=== PATIENT | female | born 1965 | race Caucasian/White ===

== ENCOUNTER → 2017-07-22 13:30 | Outpatient (CLI) | payer BC | END | disposition home or self-care (01) | LOC: D.MAMMO 11:00 | DX: Z12.31 Encounter for screening mammogram for malignant neoplasm of breast (principal) ==

== ENCOUNTER → 2019-09-29 10:41 | Outpatient (CLI) | payer BC | END | disposition home or self-care (01) | LOC: D.MRI 10:41 | PROVIDERS: ATTEND Clinical Nurse Specialist Family Health | DX: M25.512 Pain in left shoulder (principal) ==

== ENCOUNTER → 2020-01-02 11:34 | Outpatient (CLI) | payer OTHER | END | disposition home or self-care (01) | LOC: D.RAD 11:30 | PROVIDERS: ATTEND Pediatrics | DX: Z02.71 Encounter for disability determination (principal) ==

== ENCOUNTER 2020-01-09 05:40 | Day surgery (SDC) | payer MEDICAID ==
--- NOTE | 2020-01-06 08:37 | NUR ---
bp ra-124/85 pox-98% hr- 64 rr- 16 t- 97.8
[2020-01-06 08:50] LABS: HEMATOCRIT 45.1 % (36.0-48.0); HEMOGLOBIN 15.4 g/dL (12-16); MCH 32.4 pg (26.0-34.0); MCHC 34.1 g/dL (31.0-37.0); MCV 94.9 fL (80.0-100.0); MEAN PLATELET VOLUME 10.2 fL (7.4-10.4); RBC 4.75 10x6/uL (4.00-5.40); RDW 12.8 % (11.5-14.5); WBC 6.6 10x3/uL (4.8-10.8)
[~2020-01-09] VITALS: Ht 160 cm; Wt 62.6 kg
[~2020-01-09 05:40] MED LIST: CYCLOBENZAPRINE5 MG PO; HYDROCODON-ACE1 EA10 PO; MOBIC7.5 MG PO; NEURONTIN 300300 MG PO; ZANAFLEX4 MG PO
[2020-01-09 06:08] VITALS: BP 115/59; Ht 160 cm; Wt 62.6 kg
[2020-01-09] MEDS ORDERED: HYDROCODON-ACE1 EA10 PO (08:15)
--- NOTE | 2020-01-10 09:15 | OP ---
PATIENT NAME: WM DE LOS SANTOS MEDICAL RECORD: [id number] :67 LOCATION:[facility] ADMISSION DATE: SURGEON: AFSHAN MONAHAN MD DATE OF OPERATION: 01/09/2020 PREOPERATIVE DIAGNOSIS: Impingement syndrome of the left shoulder with rotator cuff tear. POSTOPERATIVE DIAGNOSIS: Impingement syndrome of the left shoulder with rotator cuff tear plus severe biceps tendinitis. PROCEDURES: 1. Arthroscopic rotator cuff repair, left shoulder. 2. Arthroscopic biceps tenotomy of the left shoulder. 3. Arthroscopic distal clavicle excision done through separate incision. 4. Arthroscopic subacromial decompression, acromioplasty, and bursectomy. SURGEON: Afshan Monahan MD ANESTHESIA: General. INTRAOPERATIVE COMPLICATIONS: None. SUMMARY OF PATHOLOGIC FINDINGS: Consistent with the preoperative diagnosis, the patient did indeed have impingement syndrome with excoriation of the coracoacromial ligament as well as the undersurface of the acromion full thickness rotator cuff tearing of the distal supraspinatus tendon, biceps tendinitis, and acromioclavicular arthritis. OPERATIVE SUMMARY IN DETAIL: After obtaining the appropriate preoperative orthopedic surgery consent as well as anesthetic consultation, evaluation and clearance, the patient was brought to the operating room and placed on the operating table in a supine position. After adequate general laryngeal mask airway was administered, the patient was placed in right lateral decubitus position. All pressure points were well padded to include down leg peroneal pad as well as the axillary roll. The patient was held firmly to the operating table using the vacuum pack suction system. Left upper extremity and shoulder were then prepped and draped in routine sterile fashion. The arm was held in the [employer] traction boom at 30 degrees of forward flexion, 30 degrees of abduction, 10 pounds of traction laterally. Arthroscopy was established in the glenohumeral joint from the posterior portal. Anterior portal was established in the anterior safe interval. Diagnostic arthroscopy showed the patient to have the above findings full thickness rotator cuff tear was noted. The Brain 1 [place] tissue ablation system was utilized to denude to release the biceps tendon at the bicipital labral junction. The undersurface of the acromion was then denuded of all soft tissue elements. A 5.0 barrel bur was used for acromioplasty at the level of the acromioclavicular joint. Next, under separate arthroscopic visualization anteriorly approached the distal clavicle was excised for 1 cm. Lastly, the rotator cuff was reapproached. The footprint was decorticated for good reapproximation. A #2 FiberTape was placed in inverted mattress fashion. It was then anchored laterally with a 5.5 SwiveLock from [employer]. Having completed this, arthroscopy portals were closed in routine interrupted fashion using 4-0 Prolene. Sterile dressings were applied. The patient was awakened, taken to recovery room in stable condition. All final needle and sponge counts were correct. OPERATIVE REPORT [id number] WM DE LOS SANTOS TRANSINT:[id number] Voice Confirmation ID: [id number] DOCUMENT ID: [id number] HERO MCNEIL, AFSHAN BURNETTE at 0915 CC: [id number] DICTATION DATE: 01/09/20818 VETERINARY SURGEON: 01/09/20 1949 [facility] 01/09/20 [facility] [address] [place] [address]
== END 2020-01-09 10:15 | disposition home or self-care (01) ==
LOC: D.OPS 05:40 → D.PAN 07:30 → D.OPS 07:45 → D.PAN 07:50 → D.OPS 10:15
PROVIDERS: Anesthesiology; ATTEND Orthopaedic Surgery
DX: M75.42 Impingement syndrome of left shoulder (principal); M75.102 Unspecified rotator cuff tear or rupture of left shoulder, not specified as traumatic; M75.22 Bicipital tendinitis, left shoulder

== ENCOUNTER 2020-03-21 18:00 | Outpatient (CLI) | payer MEDICAID ==
[2020-01-09 06:08] VITALS: BMI 24.5
== END 2020-03-21 23:59 | disposition home or self-care (01) ==
LOC: D.MAMMO 18:00
PROVIDERS: ATTEND Family Medicine
DX: Z12.31 Encounter for screening mammogram for malignant neoplasm of breast (principal)